=== PATIENT | female | born 1970 | race Caucasian/White ===

== ENCOUNTER → 2024-11-01 | Outpatient (CLI) | payer MEDICAID, SELFPAY | END | disposition home or self-care (01) | PROVIDERS: PCP Physician Assistant; Referring Provider Physician Assistant; Visit Provider Student in an Organized Health Care Education/Training Program | DX: S71.102A Unspecified open wound, left thigh, initial encounter (principal); W54.0XXA Bitten by dog, initial encounter; F17.200 Nicotine dependence, unspecified, uncomplicated; F10.90 Alcohol use, unspecified, uncomplicated; G62.9 Polyneuropathy, unspecified; R63.0 Anorexia; E66.9 Obesity, unspecified | CPT/HCPCS: 99213; A9270; G0463 ==